=== PATIENT | female | born 1955 | race Caucasian/White ===

== ENCOUNTER 2022-12-16 12:55 | Outpatient (REF) | payer MEDICARE, SELFPAY | END 2022-12-16 12:56 | disposition home or self-care (01) | LOC: HO.SH 12:55 | PROVIDERS: Visit Provider Physician Assistant | DX: Z01.118 Encounter for examination of ears and hearing with other abnormal findings (principal); H90.3 Sensorineural hearing loss, bilateral | CPT/HCPCS: 92557 ==

== ENCOUNTER 2023-05-22 12:41 | Outpatient (REF) | payer SELFPAY ==
--- NOTE | 2023-05-22 13:41 | MHC.AU.MED ---
Medical Clearance for Hearing Instrumentation Date: 05/22/23 Patient Name: Dakotah Mondragon Date of : 1955 Primary Care Provider: Tia Davila PA-C We have seen your patient on 05/22/23 and have determined that they are a candidate for amplification (See accompanying report). Specifically, they would benefit from: Hearing aid use in both ears There is a statute that addresses Medical Evaluation Requirements prior to fitting a patient with a hearing aid. According to [place] statute 265 CMR:6.03(1), (a) General. Except as provided in 265 CMR 6.03(1)(b), a hearing instrument specialist shall not sell a hearing aid unless the prospective user has presented to the hearing instrument specialist a written statement signed by a licensed physician that states that the patient's hearing loss has been medically evaluated and the patient may be considered a candidate for a hearing aid. The medical evaluation must have taken place within the preceding six months. Please note: Due to the [place] Statute referenced above, we cannot accept a signature other than that of a licensed physician. FILLER WIPER and PA signatures cannot be accepted. I am in agreement with the above recommendation. There is no medical contraindication for hearing instrumentation. Physician Signature Date Physician Name (Printed)
--- NOTE | 2023-05-22 13:56 | MHC.AU.HA1 ---
Hearing Aid Evaluation Date of Visit: 05/22/23 Historical Information: Description of Hearing: Within normal sloping to severe sensorineural hearing loss, bilaterally Summary: Dakotah is ready to pursue hearing aids due to continued hearing difficulties. She noted particular difficulty understanding speech as her hearing is muffled as well as in the car. Dakotah reportedly watches her grandchildren, likes to hike, as well as frequents restaurants. She opted to trial rechargeable RITEs compatible with her iPhone in quiet level technology. Hearing Aid Prescription: Based on the individual?s shared listening needs, communication environments, dexterity, desire for connectivity, and personal preferences, the following prescription for amplification has been made: Right ear: Make, Model, Color: [place] Intent 4 miniRITE-R Color: Chroma Beige Battery Size: Rechargeable Animal Cruelty Investigator/Slim Tube: 2/85 Type of Earmold/Dome/CShell/SlimTip: 8mm double gilbert dome Left ear: Left ear prescription to be same as Right Hearing Aid above: Make, Model, Color: O[employer] Intent 4 miniRITE-R Color: Chroma Beige Battery Size: Rechargeable Animal Cruelty Investigator/Slim Tube: 2/85 Type of Earmold/Dome/CShell/SlimTip: 8mm double gilbert dome Accessories/Assistive Technology: Jig Borer; ConnectClip Plan of Care: Patient wishes to purchase hearing aids as prescribed Action Taken/Action Needed: Medical Clearance to be requested from PCP/ENT. Hearing Instrument Fitting to be scheduled when materials arrive Primary Diagnosis: H90.3 Bilateral Sensorineural Hearing Loss Signature: Provider: Jarvis Green, [facility]
== END 2023-05-22 12:42 | disposition home or self-care (01) ==
LOC: HO.HAP 12:41
PROVIDERS: PCP Physician Assistant; Visit Provider Physician Assistant
DX: Z46.1 Encounter for fitting and adjustment of hearing aid (principal); H90.3 Sensorineural hearing loss, bilateral
CPT/HCPCS: 92590

== ENCOUNTER 2023-05-30 14:58 | Outpatient (REF) | payer SELFPAY | END 2023-05-30 14:59 | disposition home or self-care (01) | LOC: HO.HAP 14:58 | PROVIDERS: Visit Provider Physician Assistant | DX: Z46.1 Encounter for fitting and adjustment of hearing aid (principal); H90.3 Sensorineural hearing loss, bilateral | CPT/HCPCS: V5261; V5299 ==

== ENCOUNTER 2023-06-18 13:58 | Outpatient (REF) | payer SELFPAY | END 2023-06-18 13:59 | disposition home or self-care (01) | LOC: HO.HAP 13:58 | PROVIDERS: Visit Provider Physician Assistant | DX: Z13.89 Encounter for screening for other disorder (principal) ==

== ENCOUNTER 2023-12-17 17:26 | Emergency (ER) | payer MEDICARE, SELFPAY ==
--- NOTE | ~2023-12-17 | XR_ITS ---
EXAMINATION: XR CHEST CLINICAL INFORMATION: SOB COMPARISON: None available. TECHNIQUE: 2 views of the chest were obtained. FINDINGS: No significant abnormality is noted involving the heart, lungs, mediastinum, bony thorax or soft tissues. XR/XR chest 2V IMPRESSION: Unremarkable examination. Electronically signed by: Jasmin Galvan MD 12/17/2023 08:09 PM EDT RP
--- NOTE | 2023-12-17 17:28 | ECG_ITS ---
Test Reason : PALPITATIONS Blood Pressure : / mmHG Vent. Rate : 073 BPM Atrial Rate : 073 BPM P-R Int : 146 ms QRS Dur : 092 ms QT Int : 418 ms P-R-T Axes : 061 075 037 degrees QTc Int : 460 ms Normal sinus rhythm Possible Left atrial enlargement Incomplete right bundle branch block Borderline ECG No previous ECGs available Referred By: Generic ED Physician Electronically Signed By:Erasmo Plascencia
[2023-12-17 17:40] VITALS: BP 118/77; PULSE 85; RESP 20; TEMP 36.4; O2SAT 100; BMI 21.0
--- NOTE | 2023-12-17 17:41 | ED_ITS ---
HPI - Chest Pain General Chief Complaint: Dyspnea Stated Complaint: sob/heart beating faster Time Seen by Provider: 12/17/23 19:28 History of Present Illness ED Provider: Alex HPI narrative: 68-year-old female with past medical history of SVT presenting for palpitations and lightheadedness. Patient states that earlier this afternoon while driving on her way to pickle processor her grandkids she began experiencing palpitations and became lightheaded. States she felt like passing out however she did not syncopized. She states that this sensation lasted for approximately 1 hour. She also endorses mild shortness of breath and chest tightness however denies chest pain. She denies head pain, neck pain, abdominal pain, vomiting, nausea, urinary symptoms. Patient states that her symptoms have mostly resolved however she is still experiencing mild chest tightness. Related Data Previous Rx's ?Medication ?Instructions ?Recorded cephalexin 500 mg capsule 500 mg PO QID 7 days #28 caps 12/17/23 Allergies Allergy/AdvReac Type Severity Reaction Status Date / Time No Known Allergies Allergy Verified 12/17/23 17:42 Review of Systems 2 Review of Systems: Patient endorses lightheadedness, palpitations, shortness of breath, chest tightness Yes all other systems are reviewed and are negative FOR[facility]LY [facility], [facility] Past Medical History Attestation statement: The following information was validated with the patient. [facility], [facility] Narrative: SVT Social History Social History Alcohol intake: current Alcohol intake frequency: a few times a month Alcohol type: wine Smoked in Last 30 Days: No Use of substances other than those prescribed or required for medical reasons: No Advance Directives: No Advance Directives Information Provided: No Physical Exam 2 Vital Signs: Vital Signs: Last Vital Signs Temp 98.0 F 12/17/23 21:25 Pulse 70 12/17/23 21:25 Resp 18 12/17/23 21:25 BP 114/75 12/17/23 21:25 Pulse Ox 98 12/17/23 21:25 O2 Del Method Room Air 12/17/23 21:25 BMI result Body Mass Index 21.0 Well-appearing female in no acute distress Lungs clear to auscultation bilaterally; normal S1-S2 regular rate and rhythm Abdomen is soft nontender nondistended No focal neurologic deficits appreciated Patient walked in with steady gait Course Course Course Narrative: This is an RME: Additional HPI, ROS, PE not included below will be deferred to primary provider. RME assessment and note performed by: Martha Santiago PA-C This is a 01-msrx-axr-female, with a hx of SVT with ablation, who presents to the ER with a complaint of with complaints of sudden onset shortness of breath, and left shoulder pain since today. She was driving to pickle processor grandchildren at 4:30PM and developed a sudden onset of chest pain and shortness of breath. Patient reports that she had a similar situation 2 years ago when she was found to have SVT and ultimately had an ablation. She is currently on metoprolol. She is not on any other medications. No recent travel, surgery, hospitalizations. Plan: Labs, chest x-ray, EKG Medical Decision Making Medical Decision Making MDM Narrative: 68-year-old female with past medical history of SVT presenting for palpitations lightheadedness. I am concerned for the following; cardiac arrhythmia, electrolyte/metabolic disturbance, underlying infection, vasovagal episode -patient has no focal neurologic findings making CVA/stroke and carotid dissection less likely -patient is not currently an SVT and is sinus rhythm on her EKG -labs and chest x-ray ordered -I did not appreciate large consolidation on patient's chest x-ray and the radiology interpretation is negative for any acute findings -labs notable for negative 1st troponin, normal white count, normal H&H -patient did not want to wait for 2nd troponin as she wanted to go home; her walking sat and pulse were normal; on reassessment patient reports improvement in symptoms -I gave patient instructions to follow up with the machine ii engraver and strict return precautions -prior to discharge patient's urine resulted and showed few WBCs and she was treated for UTI Differential Diagnosis Differential Diagnoses: The differential diagnosis associated with the presentation includes Cardiac arrhythmia, electrolyte/metabolic disturbance, underlying infection, vasovagal episode Lab Data 12/17/23 18:24 12/17/23 18:24 Labs: Lab Results 12/17/23 12/17/23 Range/Units 18:24 21:01 WBC 5.0 (4.8-10.8) X10*3/uL RBC 4.21 (4.20-5.50) X10*6/uL Hgb 12.8 (12.0-16.0) g/dl Hct 37.4 (37.0-47.0) % MCV 88.8 (80.0-98.0) fL MCH 30.4 (27.0-33.0) pg MCHC 34.2 (31.0-35.0) g/dl RDW 13.2 (11.0-16.0) % Plt Count 212 (160-400) X10*3/uL MPV 9.0 L (9.4-12.3) fL Immature Gran % (Auto) 0.2 (0.0-0.4) % Neut % (Auto) 57.1 (45-73) % Lymph % (Auto) 32.5 (20-40) % Bradley % (Auto) 9.2 (2-11) % Eos % (Auto) 0.4 (0-4) % Baso % (Auto) 0.6 (0-2) % Lymph # (Auto) 1.6 (1.2-4.9) X10*3/uL Bradley # (Auto) 0.5 (0.1-1.2) X10*3/uL Eos # (Auto) 0.0 (0.0-0.4) X10*3/uL Baso # (Auto) 0.0 (0.0-0.2) X10*3/uL Abs Immat Gran (auto) 0.01 (0.00-0.03) X10*3/uL Absolute Neuts (auto) 2.8 (2.0-8.3) x10*3/uL Absolute Nucleated RBC 0.000 (0.0-0.012) X10*3/uL Nucleated RBC % (auto) 0.0 (0.0-0.2) /100WBC PT 11.4 (10.9-12.4) SEC INR 1.0 (0.9-1.1) Sodium 142 (135-145) mmol/L Potassium 4.0 (3.3-5.1) mmol/L Chloride 107 (96-108) mmol/L Carbon Dioxide 27 (22-29) mmol/L Anion Gap 12 (12-20) BUN 17 H (9-16) mg/dL Creatinine 0.77 (0.5-1.4) mg/dL Estim Creat Clear Calc 68.0 Estimated GFR > 60 Random Glucose 102 (60-115) mg/dL Calcium 10.2 (8.4-10.2) mg/dL Magnesium 1.9 (1.6-2.6) mg/dL Total Bilirubin 0.7 (0.0-1.0) mg/dL AST 31 (5-31) U/L ALT 25 (0-31) U/L Alkaline Phosphatase 63 (39-117) U/L Troponin I High Sens < 2.7 (<3.5-17.0) ng/L B-Natriuretic Peptide 102 H (<100) pg/mL Total Protein 6.9 (6.5-8.0) g/dL Albumin 4.4 (3.5-5.0) g/dL Urine Color Yellow Urine Appearance Clear Urine pH 5.5 (5.0-9.0) Ur Specific [place] 1.025 (1.005-1.025) Urine Protein Negative (Neg-Trace) mg/dL Urine Glucose (UA) Negative (Negative) mg/dL Urine Ketones 15 (Negative) mg/dL Urine Blood Negative (Negative) Urine Nitrite Negative (Negative) Ur Leukocyte Esterase Small (1+) H (Negative) Urine RBC 0-2 (0-2) /HPF Urine WBC 11-20 H (0-5) /HPF Ur Squamous Epith Cells 0-2 (0-2) /HPF Urine Bacteria None Seen (None Seen) Hyaline Casts 0-2 (0-2) /LPF Discharge Plan Discharge Clinical Impression: Heart palpitations, Lightheadedness, Urinary tract infection Patient Disposition: Home, Self-Care Additional Instructions: Please follow up with your PCP and your machine ii engraver in the next 24-48 hours Please pickle processor your new antibiotics and take as instructed I do not recommend making any changes to your medication until you talk to one of your outpatient providers If you develop any new or worsening symptoms please return to the emergency department Prescriptions: New cephalexin 500 mg capsule 500 mg PO QID 7 Days Qty: 28 0RF Print Language: Egyptian
[2023-12-17 18:28] LABS: MANUAL DIFF FLAG NO
[2023-12-17 18:29] LABS: Basophils Percent Auto 0.6 % (0-2); Eosinophils Percent Auto 0.4 % (0-4); Hematocrit 37.4 % (37.0-47.0); Hemoglobin 12.8 g/dl (12.0-16.0); Imm Gran Abs Auto 0.01 X10*3/uL (0.00-0.03); Imm Gran Pct Auto 0.2 % (0.0-0.4); Lymphocytes Absolute Auto 1.6 X10*3/uL (1.2-4.9); Lymphocytes Percent Auto 32.5 % (20-40); Mean Corpuscular HGB Conc 34.2 g/dl (31.0-35.0); Mean Corpuscular Hemoglobin 30.4 pg (27.0-33.0); Mean Corpuscular Volume 88.8 fL (80.0-98.0); Monocytes Absolute Auto 0.5 X10*3/uL (0.1-1.2); Monocytes Percent Auto 9.2 % (2-11); Neutrophils Absolute Auto 2.8 x10*3/uL (2.0-8.3); Neutrophils Percent Auto 57.1 % (45-73); Platelet Count 212 X10*3/uL (160-400); Red Blood Count 4.21 X10*6/uL (4.20-5.50); Red Cell Distribution Width 13.2 % (11.0-16.0)
[2023-12-17 18:36] LABS: Prothrombin Time 11.4 SEC (10.9-12.4)
[2023-12-17 18:43] LABS: Alanine Aminotransferase 25 U/L (0-31); Albumin Level 4.4 g/dL (3.5-5.0); Alkaline Phosphatase 63 U/L (39-117); Anion Gap 12 (12-20); Aspartate Amino Transferase 31 U/L (5-31); Bilirubin Total 0.7 mg/dL (0.0-1.0); Blood Urea Nitrogen 17 mg/dL (9-16); Calcium 10.2 mg/dL (8.4-10.2); Carbon Dioxide 27 mmol/L (22-29); Chloride 107 mmol/L (96-108); Estimated Glomerular Filt Rate > 60; Glucose Random 102 mg/dL (60-115); Magnesium 1.9 mg/dL (1.6-2.6); Sodium 142 mmol/L (135-145); Total Protein 6.9 g/dL (6.5-8.0)
[2023-12-17 18:48] LABS: B Type Natriuretic Peptide 102 pg/mL (<100)
[2023-12-17 18:50] LABS: Troponin-I High Sensitivity < 2.7 ng/L (<3.5-17.0)
[2023-12-17 19:45] VITALS: BP 124/57; PULSE 56; RESP 14; TEMP 36.6; O2SAT 99
--- NOTE | 2023-12-17 21:06 | MHC.EDTECH ---
Provider requested a ambulation trial,patient sats were 98%,HR of 74,patient ambulated with a steady gait,RN made aware
[2023-12-17 21:09] VITALS: PULSE 74; O2SAT 98
[2023-12-17 21:15] LABS: Appearance Urine Clear; Color Urine Yellow; Glucose Urine UA Negative (Negative); Leukocyte Esterase Urine Small (1+) (Negative); Nitrite Urine Negative (Negative); PH 5.5 (5.0-9.0); Specific Gravity - Urine 1.025 (1.005-1.025); UMIC TRIGGER UACC YES; Urine Blood Negative (Negative); Urine Ketones 15 mg/dL (Negative); Urine Protein Negative (Neg-Trace)
[2023-12-17 21:20] LABS: Bacteria Urine None Seen (None Seen); Hyaline Casts Urine 0-2 /LPF (0-2); RBC Urine 0-2 /HPF (0-2); Squamous Epithelial Cell Urine 0-2 /HPF (0-2); UACC Culture Trigger YES
[2023-12-17 21:25] VITALS: BP 114/75; PULSE 70; RESP 18; TEMP 36.7; O2SAT 98
[2023-12-17 21:39] LABS: Troponin-I High Sensitivity < 2.7 ng/L (<3.5-17.0)
[2023-12-17] MEDS: cefTRIAXone sodium 500 MG VIAL IM (21:46)
[2023-12-17 21:48] VITALS: O2SAT 97
[2023-12-17 21:49] VITALS: BP 114/75; PULSE 70; RESP 18; TEMP 36.7; O2SAT 97
== END 2023-12-17 21:50 | disposition home or self-care (01) ==
PROVIDERS: Physician Assistant Medical; Emergency Provider Student in an Organized Health Care Education/Training Program; PCP Physician Assistant
DX: R00.2 Palpitations (principal); R42 Dizziness and giddiness; N39.0 Urinary tract infection, site not specified; R06.02 Shortness of breath
CPT/HCPCS: 36415; 71046; 80053; 81001; 83735; 83880; 84484; 85025; 85610; 87086; 93005; 96372; 99284; J0696

== ENCOUNTER → 2023-12-17 17:28 | Outpatient (BNV) | payer MEDICARE, SELFPAY | PROVIDERS: Emergency Provider Student in an Organized Health Care Education/Training Program; PCP Physician Assistant; Visit Provider Internal Medicine Cardiovascular Disease | DX: R00.2 Palpitations (principal); R94.31 Abnormal electrocardiogram [ECG] [EKG] | CPT/HCPCS: 93010 ==